=== PATIENT | male | born 1990 | race African-American/Black ===

== ENCOUNTER 2016-07-08 14:28 | Emergency (ER) | payer OTHER ==
[~2016-07-08] VITALS: Ht 177.8 cm; Wt 123.0 kg
[2016-07-08 15:02] VITALS: BP 116/71
[2016-07-08] MEDS ORDERED: TETRACAINE 0.5% OPHTH DROPS 4ML OP ONE (16:30)
[2016-07-08] MEDS ORDERED: FLUORESCEIN SODIUM 1MG/STRIP OP ONE (16:30)
[2016-07-08] MEDS ORDERED: KETOROLAC 60MG/2ML VIAL IM ONE (17:00)
[2016-07-08] MEDS ORDERED: CYCLOBENZAPRINE 10MG TABLET PO ONE (17:00)
== END 2016-07-08 18:31 | disposition home or self-care (01) ==
LOC: ER 16:58
DX: S40.012A Contusion of left shoulder, initial encounter (principal); S50.02XA Contusion of left elbow, initial encounter; M54.9 Dorsalgia, unspecified; H53.143 Visual discomfort, bilateral; V49.59XA Passenger injured in collision with other motor vehicles in traffic accident, initial encounter; Y93.89 Activity, other specified; Y92.411 Interstate highway as the place of occurrence of the external cause; Z98.890 Other specified postprocedural states
CPT/HCPCS: 73030; 73080; 99284; J1885